=== PATIENT | male | born 1940 | race Caucasian/White ===

== ENCOUNTER 2019-01-27 15:41 | Inpatient (IN) ==
[2019-01-27] MEDS ORDERED: ZOSYN 3.375 GM in NS 50 ML IV SCH (19:00)
[2019-01-27 19:30] LABS: ALLEN TEST YES; BE 5.8 mmoll (-3.0-3.0); BLOOD TYPE ARTERIAL; HCO3-(ACT) 29.4 mmoll (20.0-26.0); METHB 1.1 % (0.0-1.5); O2(CT) 17.5 mL/dL (15.0-23.0); O2HB 94.7 % (95.0-99.0); PCO2(98.6) 40 mmHg (35-45); PO2(98.6) 70 mmHg (60-100); SAMPLE BLOOD; THB 13.1 g/dL (11.5-17.4); pH(98.6) 7.48 (7.35-7.45)
[2019-01-27 19:31] LABS: BASO# 0.03 X1000 (0.0-0.2); BASO% 0.3 % (0.0-0.8); EOS# 0.07 X1000 (0.0-0.7); EOS% 0.7 % (0.0-10.0); HEMATOCRIT 40.2 % (42.0-52.0); HEMOGLOBIN 13.1 g/dL (14.0-18.0); LYMPH# 1.77 X1000 (1.2-3.4); LYMPH% 18.4 % (20.5-51.1); MCH 30.8 PG (27-31); MCHC 32.6 g/dL (33-37); MCV 94.6 FL (81-99); MONO# 0.97 X1000 (0.11-0.59); MONO% 10.1 % (1.7-9.3); MPV 8.8 FL (7.4-10.4); NEUT# 6.77 X1000 (1.4-6.5); NEUT% 70.5 % (42.2-75.2); PLT 209 X1000 (130-400); RBC 4.25 XMIL (4.7-6.1); RDW 12.3 % (11.5-14.5); WBC 9.61 X1000 (4.8-10.8)
[2019-01-27 19:43] LABS: AGAP 10; BUN 18 mg/dL (8-22); CALCIUM 8.7 mg/dL (8.8-10.2); CHLORIDE 99 mmol/L (98-107); COSMO 274; CREATININE 0.8 mg/dL (0.7-1.2); ESTIMATED GFR > 60; GLUCOSE 109 mg/dL (70-104); POTASSIUM 3.6 mmol/L (3.5-5.1); SODIUM 136 mmol/L (136-145); TCO2 27 mmol/L (25-35)
--- NOTE | 2019-01-27 20:17 | Diag Imaging Result Doc PS360 ---
EXAM: CHEST-2 VIEWS HISTORY: SOB TECHNIQUE: Chest two views COMPARISON: 07/03/2018 FINDINGS: Poor inspiratory effort. The right hemidiaphragm is elevated. No cardiomegaly. No vascular distention. No pleural effusions. No pneumonia. IMPRESSION: Stable chest Electronically signed by Teja Deshpande 01/27/2019 8:14 PM
[2019-01-27] MEDS ORDERED: ULTRACET 37.5MG/325MG PO ONE (21:00)
[2019-01-27] MEDS: LEVAQUIN 500 MG/D5W 500 MG/100 ML IVPB IV SCH (21:10)
[2019-01-27] MEDS: PROTONIX IV SCH (21:10)
[2019-01-27] MEDS: LOVENOX SUBQ SCH (21:11)
--- NOTE | 2019-01-28 00:41 | HISTORY AND PHYSICAL ---
CHIEF COMPLAINT: 1. Right leg swelling and pain, redness. 2. Right leg swelling more than the left side. 3. Shortness of breath, dizziness, falling, bruising of the left arm during the activities of daily living for the last 2 weeks. HISTORY OF PRESENT ILLNESS: He is a 78-year-old man white gentleman, was seen in my office on 01/06/2019 with small blisters and redness. Sent home on outpatient treatment. He failed to improve, came in with wheelchair by the son-in-law with above problems, and he is tachycardic, not hypoxic, and he had a positive D-dimer suspicious for DVT and rule out PE. Basically admitted to the hospital for evaluation for DVT. IV antibiotics for extensive cellulitis. He also needs assistance for his balance and physical therapy. 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 PAST SURGICAL HISTORY: Right inguinal hernia repair, right hip replacement, [facility] cardiac cath in 2009 is negative. MEDICATIONS: From my office: 1. Amitiza 8 mg p.o. b.i.d. 2. Flomax 0.4 daily. 3. Potassium 20 mEq daily. 4. Linzess 140 mcg daily. 5. Hyzaar 100/25 daily. 6. Metoprolol 50 daily. 7. Prilosec 40 daily. 8. Ultracet 1 tablet 3 times daily. ALLERGIES: Penicillin, sulfa drugs. SOCIAL HISTORY: He is and lives in [place]. No smoking. No alcohol. FAMILY HISTORY: Father blood pressure complication at the age of 85. Mom of diabetes complications at the age of 75. HEALTH MAINTENANCE: Flu vaccine September 2018. Last physical exam September 2018. Colonoscopy 2014. REVIEW OF SYSTEMS: HEENT: No headache. No vision problem. No earache. Neck : Chronic neck pain radiating to the right side and neck pain. Cardiopulmonary: No chest pain. Respiratory: Shortness of breath, PND, orthopnea. Gastrointestinal: No nausea, vomiting, abdominal pain. Genitourinary: No history of hesitancy, frequency, dysuria. Extremities: He had right leg swelling more than the left side with redness diffuse. Neurologic: No focal symptoms other than dizziness. No seizures. He had a bruise on the left side of the arm. PHYSICAL EXAMINATION: VITAL SIGNS: His temperature is a low-grade fever, tachycardic, blood pressure is 150/84. HEENT: He is generalized kyphotic, walking with a cane, now in wheelchair- bound. Pupils equal, reactive to light. NECK: Supple. No lymphadenopathy. LUNGS: Decreased breath sounds on the right side. HEART: Sounds are regular, tachycardic. ABDOMEN/RECTAL: Belly is soft, obese, nontender. Rectal: Normal prostate. Heme-negative stool. EXTREMITIES: Right leg is swollen, 5 cm more than the left side, diffuse redness noted. NEUROLOGICAL: No neurological deficits. LABS: CBC: White cell count 9.6, hematocrit 40, platelets 209,000. D-dimer 1.18, elevated. SMA- 7 is normal. ProBNP was normal. IMAGING: Chest x-ray, elevated D-dimer. ASSESSMENT AND PLAN: 1. A 78-year-old white male who came in with right leg cellulitis. IV Levaquin since he is allergic to penicillin. 2. Positive D-dimer. Venous Doppler's in the morning. If the symptoms are not improved, we will get a CT pulmonary angiogram. 3. Deep vein thrombosis prophylaxis with Lovenox. 4. Gastrointestinal prophylaxis with IV Protonix. 5. Benign prostatic hyperplasia, on Flomax. 6. Chronic pain, on Ultracet. Reconcile home medicines. Out of the bed with physical therapy. 7. Will follow up on the clinical course. cc: Bala Bishop MD MTDD
[2019-01-28 04:38] LABS: MODALITY ROOM AIR
--- NOTE | 2019-01-28 06:53 | EKG Report ---
Test Performed on : 01/27/2019 7:11:26 PM Test Reason : chest pain Blood Pressure : / mmHG Vent. Rate : 084 BPM Atrial Rate : 084 BPM P-R Int : 200 ms QRS Dur : 080 ms QT Int : 344 ms P-R-T Axes : 078 -39 038 degrees QTc Int : 406 ms Sinus rhythm. with premature atrial complexes. Left axis deviation Low voltage QRS Cannot rule out Anterior infarct (cited on or before 16-MAY-2010) Abnormal ECG When compared with ECG of 19-MAY-2010 06:40, premature atrial complexes. are now present Incomplete right bundle branch block is no longer present T wave amplitude has decreased in Anterior leads Confirmed by Rosey JUNIOR, Nicholas Rich ([id number]) on 01/28/2019 6:58:24 AM
[2019-01-28] MEDS ORDERED: MIRALAX PO ONE (08:22)
[2019-01-28] MEDS: FLOMAX PO SCH (08:53)
[2019-01-28] MEDS: ULTRACET 37.5MG/325MG PO SCH ×3 (08:53→16:41)
[2019-01-28] MEDS: PRILOSEC PO SCH (10:30)
[2019-01-28] MEDS: HYZAAR 100/12.5 MG TAB PO SCH (10:30)
[2019-01-28] MEDS: LOPRESSOR PO SCH (10:30)
[2019-01-28] MEDS: KLOR-CON PO SCH (10:31)
[2019-01-28] MEDS: CLINORIL PO SCH (12:23)
[2019-01-28] MEDS: AMITIZA PO SCH ×2 (12:24→22:24)
[2019-01-28] MEDS: PROTONIX IV SCH (18:34)
[2019-01-28] MEDS: SODIUM CHLORIDE 0.9% INJ SCH (18:34)
[2019-01-28] MEDS: LOVENOX SUBQ SCH (18:34)
[2019-01-28] MEDS: LEVAQUIN 500 MG/D5W 500 MG/100 ML IVPB IV SCH (19:38)
--- NOTE | 2019-01-29 09:00 | Diag Imaging Result Doc PS360 ---
CT HEAD W/O CONTRAST - 01/29/2019 INDICATION: pain COMPARISON: None FINDINGS: The ventricles and sulci are normal in size and contour. No intracranial mass or hemorrhage. The skull is intact. The sinuses mastoids and middle ears are clear. IMPRESSION: Negative exam. This exam was performed using automated exposure control, adjustment of mA or kV according to patient size, and/or use of iterative reconstruction technique Electronically signed by Samuel Chaudhari 01/29/2019 8:57 AM
--- NOTE | 2019-01-29 09:00 | Diag Imaging Result Doc PS360 ---
EXAM: P'TBLE-CERVICAL SPINE 1 VIEW 01/29/2019 HISTORY: pain TECHNIQUE: Cervical spine lateral portable at 0850 COMMENT: There is disc space narrowing and anterior osteophyte formation at the C3-4, C4-5, and particularly at the C5-6 and C6-7 levels. There is no evidence of fracture or subluxation and no prevertebral soft tissue swelling is present. IMPRESSION: Degenerative disc disease. Electronically signed by Bam Caruso 01/29/2019 8:58 AM
[2019-01-29] MEDS: AMITIZA PO SCH ×2 (09:29→21:59)
[2019-01-29] MEDS: LOPRESSOR PO SCH (09:29)
[2019-01-29] MEDS: CLINORIL PO SCH (09:29)
[2019-01-29] MEDS: PRILOSEC PO SCH (09:29)
[2019-01-29] MEDS: HYZAAR 100/12.5 MG TAB PO SCH (09:29)
[2019-01-29] MEDS: KLOR-CON PO SCH (09:30)
[2019-01-29] MEDS: FLOMAX PO SCH (09:30)
[2019-01-29] MEDS: ULTRACET 37.5MG/325MG PO SCH ×3 (09:30→21:58)
--- NOTE | 2019-01-29 21:02 | PROGRESS NOTE ---
DATE: 01/29/2019 SUBJECTIVE: The patient's right leg swelling is better. Redness is better. Complains of dizziness, headache, right cervical radiculopathy pain. He has been treating. EXAM: Vital signs: Temperature is 98, pulse 72, blood pressure 128/63. HEENT: Within normal limits. Neck: Supple. Chest: Bilateral air entry. Heart: Sounds are regular. No deficits noted. Right leg swelling is much improved. Venous Dopplers were negative. ASSESSMENT AND PLAN: 1. Right leg cellulitis with infected ulcer. Continue on IV Levaquin. 2. Positive D-dimer. Venous Dopplers negative. 3. Dizziness, not able to balance. We will get a CT head. 4. Right cervical radiculopathy pain, follow up on x-ray C-spine. 5. Disposition: Rehabilitation placement. Continue present treatment. LEVEL OF DOCUMENTATION: 25 minutes. cc: Bala Bishop MD
[2019-01-29] MEDS: PROTONIX IV SCH (21:58)
[2019-01-29] MEDS: LOVENOX SUBQ SCH (21:58)
[2019-01-29] MEDS: SODIUM CHLORIDE 0.9% INJ SCH (21:58)
[2019-01-29] MEDS: LEVAQUIN 500 MG/D5W 500 MG/100 ML IVPB IV SCH (21:59)
[2019-01-30] MEDS: LOPRESSOR PO SCH (09:42)
[2019-01-30] MEDS: AMITIZA PO SCH ×2 (09:42→20:13)
[2019-01-30] MEDS: KLOR-CON PO SCH (09:43)
[2019-01-30] MEDS: CLINORIL PO SCH (09:43)
[2019-01-30] MEDS: PRILOSEC PO SCH (09:43)
[2019-01-30] MEDS: HYZAAR 100/12.5 MG TAB PO SCH (09:43)
[2019-01-30] MEDS: ULTRACET 37.5MG/325MG PO SCH ×3 (09:43→20:14)
[2019-01-30] MEDS: FLOMAX PO SCH (09:43)
[2019-01-30] MEDS: SOLU-MEDROL IV SCH ×2 (09:56→20:13)
[2019-01-30] MEDS: LEVAQUIN 500 MG/D5W 500 MG/100 ML IVPB IV SCH (20:12)
[2019-01-30] MEDS: LOVENOX SUBQ SCH (20:13)
--- NOTE | 2019-01-30 21:13 | PROGRESS NOTE ---
DATE: 01/30/2019 SUBJECTIVE: The patient is feeling neck pain, dizziness, not able to ambulate. REVIEW OF SYSTEMS: Other than dizziness and pain in the right side. PHYSICAL EXAMINATION: Vital Signs: Temperature is 97 degrees, pulse is 60, blood pressure 121/60. HEENT: Within normal limits. Severe kyphosis. Heart: Sounds are regular. Lungs: Decreased breath sounds on the right side. Abdomen: Belly is soft, nontender. Extremities: Right leg edema much improved, as well as redness. INVESTIGATIONS: None reported. ASSESSMENT AND PLAN: 1. Right leg cellulitis with ecthyma ulcers, getting better with IV antibiotics with Levaquin. 2. Dizziness. CT head was negative. Probably inner ear. 3. Right cervical radiculopathy pain due to spondylosis. We will give IV prednisolone 60 b.i.d. 4. Positive D-dimer. Venous Doppler was negative on the right leg. 5. Deep venous thrombosis prophylaxis with Lovenox. 6. Hypertension, on Hyzaar 1 tablet daily. Metoprolol 50 daily. Stable. 7. Arthritic pains. Sulindac, tramadol as directed. 8. Out of the bed with physical therapy. 9. Chronic constipation, on Amitiza 8 mcg p.o. b.i.d. 10. Continue physical therapy while he is in the hospital. 11. 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 12. Will follow up. LEVEL OF DOCUMENTATION: 25 minutes. cc: Bala Bishop MD
[2019-01-31] MEDS: HYZAAR 100/12.5 MG TAB PO SCH (10:22)
[2019-01-31] MEDS: AMITIZA PO SCH ×2 (10:22→21:01)
[2019-01-31] MEDS: SOLU-MEDROL IV SCH ×2 (10:23→21:01)
[2019-01-31] MEDS: PRILOSEC PO SCH (10:23)
[2019-01-31] MEDS: CLINORIL PO SCH (10:23)
[2019-01-31] MEDS: LOPRESSOR PO SCH (10:23)
[2019-01-31] MEDS: KLOR-CON PO SCH (10:23)
[2019-01-31] MEDS: FLOMAX PO SCH (10:23)
[2019-01-31] MEDS: ULTRACET 37.5MG/325MG PO SCH ×3 (10:25→21:01)
[2019-01-31] MEDS: ANTIVERT PO SCH ×3 (10:41→21:01)
--- NOTE | 2019-01-31 11:05 | PROGRESS NOTE ---
DATE: 01/31/2019 SUBJECTIVE: The patient is stable. Complains of ongoing dizziness. He noted some good improvement in his neck pain with the steroids administered yesterday overall. OBJECTIVE: Afebrile. Pulse is 89, respirations 20, blood pressure 135/77, O2 saturation on room air is 93% to 94%. Cardiovascular: Regular rate and rhythm with occasional ectopy. Lungs: I cannot rule out rare wheeze on the right. Abdomen is soft. Active bowel sounds. Nontender and nondistended. Positive bowel movements noted since admission daily. Extremities: Trace lower extremity edema, right greater than left, with mild redness to right distal to mid cuenca area improving by patient report. Neurologic: Cranial nerves II through XII are intact. Large bruising at left triceps, biceps and antecubital area, chronic since before admission. ASSESSMENT: 1. Right lower extremity cellulitis with negative venous Doppler. Stable on IV Levaquin. 2. Dizziness with history of vertigo frequently in the past. 3. Right neck pain, improved with IV steroids. 4. Elevated D-dimer with negative venous Doppler of right lower extremity, on prophylactic doses of Lovenox currently. 5. Hypertension. 6. Osteoarthritis. 7. Chronic constipation. PLAN: Continue physical therapy. We will add Antivert. Continue IV steroids. Continue IV Levaquin. Rehabilitation placement evaluation in progress. cc: MD Bala Turner MD
[2019-01-31] MEDS: LEVAQUIN 500 MG/D5W 500 MG/100 ML IVPB IV SCH (21:00)
[2019-01-31] MEDS: LOVENOX SUBQ SCH (21:01)
[2019-02-01] MEDS: FLOMAX PO SCH (09:12)
[2019-02-01] MEDS: CLINORIL PO SCH (09:12)
[2019-02-01] MEDS: SOLU-MEDROL IV SCH ×2 (09:12→21:07)
[2019-02-01] MEDS: ANTIVERT PO SCH ×3 (09:13→18:27)
[2019-02-01] MEDS: AMITIZA PO SCH ×2 (09:13→21:07)
[2019-02-01] MEDS: LOPRESSOR PO SCH (09:13)
[2019-02-01] MEDS: KLOR-CON PO SCH (09:13)
[2019-02-01] MEDS: PRILOSEC PO SCH (09:13)
[2019-02-01] MEDS: HYZAAR 100/12.5 MG TAB PO SCH (09:14)
[2019-02-01] MEDS: ULTRACET 37.5MG/325MG PO SCH ×3 (09:14→18:27)
--- NOTE | 2019-02-01 10:57 | PROGRESS NOTE ---
DATE: 02/01/2019 SUBJECTIVE: Patient overall stable. Still complains of dizziness but says he thinks he is improved from yesterday with a trial of the Antivert. It did seem to cause some drowsiness. OBJECTIVE: Vital Signs: Afebrile, pulse 50s at times and now 76, respirations 20, blood pressure 161/89. CV: RRR. Lungs: CTA. Abdomen: Soft, nontender, nondistended. Last bowel movement yesterday. Extremities: No calf tenderness or cords. No major edema identified. There is some redness over the right mid to distal cuenca area that is chronic and some scabbed lesions but these do not appear acutely infected. Neurologic: CN 2 through 12 intact. No focal deficits. ASSESSMENT: 1. Right lower extremity cellulitis, improving slowly on Levaquin. 2. Vertigo. 3. Right neck pain, improved with intravenous steroids. 4. Elevated D-dimer with negative venous Doppler, on prophylactic doses of Lovenox currently. 5. Hypertension. 6. Osteoarthritis. 7. Chronic constipation, stable on medicine. PLAN: Continue Antivert and physical therapy, and the IV steroids and IV Levaquin. Rehab placement planned tomorrow. cc: MD Bala Turner MD
[2019-02-01] MEDS: MUCINEX DM PO SCH ×2 (14:43→21:07)
[2019-02-01] MEDS: LOVENOX SUBQ SCH (21:07)
[2019-02-01] MEDS: LEVAQUIN 500 MG/D5W 500 MG/100 ML IVPB IV SCH (21:12)
--- NOTE | 2019-02-02 08:56 | Diag Imaging Result Doc PS360 ---
EXAM: SHOULDER-RIGHT 02/02/2019 HISTORY: pain TECHNIQUE: Right shoulder two views COMMENT: There is calcification in or around the acromioclavicular joint. This may be due to calcium pyrophosphate deposition disease. There is considerable subchondral cyst formation present particularly around the greater tuberosity. No evidence of acute fracture or dislocation is present. IMPRESSION: Osteoarthritis with calcium pyrophosphate deposition disease. Electronically signed by Bam Caruso 02/02/2019 8:53 AM
[2019-02-02] MEDS: PRILOSEC PO SCH (09:15)
[2019-02-02] MEDS: AMITIZA PO SCH ×2 (09:24→20:39)
[2019-02-02] MEDS: LOPRESSOR PO SCH (09:24)
[2019-02-02] MEDS: HYZAAR 100/12.5 MG TAB PO SCH (09:25)
[2019-02-02] MEDS: FLOMAX PO SCH (09:25)
[2019-02-02] MEDS: CLINORIL PO SCH (09:25)
[2019-02-02] MEDS: MUCINEX DM PO SCH ×2 (09:25→20:39)
[2019-02-02] MEDS: KLOR-CON PO SCH (09:25)
[2019-02-02] MEDS: SOLU-MEDROL IV SCH ×2 (09:26→20:39)
[2019-02-02] MEDS: ANTIVERT PO SCH ×3 (09:26→16:56)
[2019-02-02] MEDS: ULTRACET 37.5MG/325MG PO SCH ×3 (09:27→20:40)
[2019-02-02] MEDS ORDERED: MARCAINE 0.5% INJ ONE (12:11)
[2019-02-02] MEDS ORDERED: DEPO-MEDROL IM ONE (12:11)
[2019-02-02] MEDS ORDERED: MARCAINE 0.5% PF INJ ONE (12:45)
--- NOTE | 2019-02-02 18:07 | CONSULTATION ---
DATE OF CONSULTATION: 02/02/2019 REASON FOR CONSULTATION: Right shoulder pain. HISTORY OF PRESENT ILLNESS: Mr. Peguero is a 78-year-old white male with a past medical history of BPH, hypertension, osteoarthritis, and spinal stenosis, who was admitted by Dr. Philip to [facility] after seeing him in the office. Apparently, he came to the office with cellulitis of the right lower extremity. He was also tachycardic in the office, and there were some suspicions for a DVT. While he has been in the hospital, he has been complaining of some right shoulder pain. Orthopedics has been consulted to manage the right shoulder pain. PAST MEDICAL HISTORY: 1. BPH. 2. Primary essential hypertension. 3. Nguyễn's disease of the back. 4. Osteoarthritis. 5. Spinal stenosis. PAST SURGICAL HISTORY: 1. Right inguinal hernia repair. 2. Right total hip replacement. 3. Left heart catheterization in 2009. MEDICATIONS: 1. Amitiza 8 mg p.o. b.i.d. 2. Flomax 0.5 mg daily. 3. Potassium 20 mEq daily. 4. Linzess 140 mcg daily. 5. Hyzaar 100/25 mg daily. 6. Metoprolol 50 mg daily. 7. Prilosec 40 mg daily. 8. Ultracet 1 tablet 3 times p.o. daily. ALLERGIES: 1. Penicillin. 2. Sulfa drugs. SOCIAL HISTORY: He is and lives [place]. He denies tobacco, alcohol, or illicit drug use. FAMILY HISTORY: Noncontributory. REVIEW OF SYSTEMS: A 10 point review of systems was conducted and negative, except for what was mentioned above in the HPI. PHYSICAL EXAMINATION: Current Vital Signs: Temperature is 98.3 degrees, pulse is 56, respirations 18, he is 120/64 blood pressure, and 97% on 4 L nasal cannula. General: This is a 78-year-old male in no acute distress. HEENT: Head is atraumatic, normocephalic. Pupils are equal, round, and reactive to light. Lungs: Breathing is even and unlabored. He is on oxygen. Cardiovascular: Regular rate and rhythm. Abdomen: The belly is soft. He is obese. Appears nondistended. Extremities: The right lower leg does still have some erythema, kind of generalized to that area. He does still have some edema there. Right upper extremity: He is tender to palpation mostly over the AC joint. There is no significant edema. He does have some ecchymosis, but there are no open lacerations or wounds. His hand intrinsics are intact. He has a 2+ radial pulse. DIAGNOSTIC STUDIES: A right shoulder x-ray shows no acute fracture, but there is some calcification of the AC joint. Overall alignment looks good. ASSESSMENT: 1. Right shoulder contusion. 2. Right subacromial bursitis. PLAN: I think at this point, pain control and physical therapy will be the best bet for the shoulder. We are going to proceed with a steroid injection on this right side. PROCEDURE NOTE: Right shoulder injection. DESCRIPTION: After verbal consent was obtained, the skin was prepped and allowed to air dry with alcohol. A 22-gauge needle was used to access the AC joint. An 80 mg Depo-Medrol solution with Marcaine was injected intra-articularly. Patient tolerated the procedure well, and there were no complications. I do want Mr. Peguero to continue using this right shoulder. He can work with Physical Therapy on the right shoulder as well. We will follow up with him in 3 to [address] Moreira's office. If he has seen no improvement with the injection and with therapy, we may consider getting an MRI to further evaluate the shoulder. Should the patient have any questions or concerns, he is welcome to call the office. If you need anything further, we would be happy to see him in-house. Dictated by MITZY Meyers for Malik Moreira MD cc: MITZY Meyers MD Jagan Reddy, MD
[2019-02-02] MEDS: LEVAQUIN 500 MG/D5W 500 MG/100 ML IVPB IV SCH (20:39)
[2019-02-02] MEDS: LOVENOX SUBQ SCH (20:39)
--- NOTE | 2019-02-02 21:19 | PROGRESS NOTE ---
DATE: 02/02/2019 SUBJECT: Events noted over the weekend. Patient got better yesterday now complains of dizziness, right shoulder pain. He is not able to ambulate. Nurse was at bedside. The son is also there too. Blood pressure, heart rate is on the low side. He is in telemetry.HEENT: Within normal limits. Neck: Supple. Chest: Bilateral air entry decreased on the right side. Distant heart sounds and the right shoulder not able to lift with abduction. Decreased swelling and redness on the right leg. ASSESSMENT AND PLAN: 1. Right leg cellulitis improving. IV Levaquin. 2. Positive D-dimer. Venous Dopplers were negative. 3. Chronic elevated right hemidiaphragm stable. 4. Dizziness due to inner ear, will use meclizine as needed, not able to improve will check the orthostatic blood pressure. 5. Sinus bradycardia. I am going to decrease the metoprolol to 25 mg daily from [address] head is negative, not improving, follow up on orthostatic. 7. Right shoulder pain. X-rays reviewed. Pseudogout. Consult with Dr. Moreira. Discussed the plan of care with the family. Will continue to monitor and disposition rehab placement. LEVEL OF DOCUMENTATION: 25 minutes. cc: Bala Bishop MD
--- NOTE | 2019-02-03 06:52 | PROGRESS NOTE ---
DATE: 02/03/2019 SUBJECTIVE: The patient is a pleasant, 78-year-old male who was admitted to the hospital a few days ago with cellulitis of the right lower extremity. He had been on IV Levaquin. He also reports a fall approximately a week ago, injuring his right shoulder. He has had discomfort and orthopedic consultation was requested. OBJECTIVE: On physical examination, the patient is currently sleeping this morning. He underwent evaluation yesterday and had some ecchymosis on the lateral upper arm. He did have a positive Neer impingement and Garay. X-rays were negative for acute fracture. IMPRESSION: Right shoulder contusions and subacromial bursitis. PLAN: At this point, the patient received a corticosteroid injection yesterday. We will plan to immobilize and use shoulder and right upper extremity as tolerated. We will have him follow up in the office in a few weeks if he is still symptomatic. All questions were answered. cc: MD Bala Dos Santos MD MTDD
[2019-02-03] MEDS: SOLU-MEDROL IV SCH (09:17)
[2019-02-03] MEDS: FLOMAX PO SCH (09:18)
[2019-02-03] MEDS: LOPRESSOR PO SCH (09:18)
[2019-02-03] MEDS: PRILOSEC PO SCH (09:18)
[2019-02-03] MEDS: CLINORIL PO SCH (09:19)
[2019-02-03] MEDS: AMITIZA PO SCH ×2 (09:19→21:00)
[2019-02-03] MEDS: KLOR-CON PO SCH (09:19)
[2019-02-03] MEDS: ANTIVERT PO SCH ×3 (09:19→16:06)
[2019-02-03] MEDS: HYZAAR 100/12.5 MG TAB PO SCH (09:19)
[2019-02-03] MEDS: ULTRACET 37.5MG/325MG PO SCH ×3 (09:20→21:00)
[2019-02-03] MEDS: MUCINEX DM PO SCH ×2 (09:20→21:00)
--- NOTE | 2019-02-03 17:57 | Extremity Venous Study ---
PROCEDURE NAME: Venous U/S Right Leg - 01/27/2019 REQUEST PHYSICIAN: Dr. Bishop. READING PHYSICIAN: Dr. Victoria. CHIEF CATALYST OPERATOR: Dalia. INDICATION: Right leg pain and swelling. FINDINGS: The deep and superficial veins of the right lower extremity were imaged throughout their course. They are compressible, patent without thrombus. INTERPRETATION: No DVT or SVT of the right lower extremity. cc: MD Bala Botello MD
--- NOTE | 2019-02-03 20:01 | PROGRESS NOTE ---
DATE: 02/03/2019 SUBJECTIVE: The patient continues to have dizziness upon moving the head. Meclizine is not helping. Right shoulder pain is somewhat improved with the shot. I appreciate Dr. Moreira's consult. PHYSICAL EXAMINATION: Hemodynamics are stable. Pulse is 77, temperature is 97 degrees, blood pressure is 137/70. HEENT: Within normal limits. Neck: Supple. Chest: Bilateral air entry. Cardiovascular: Heart sounds are regular. ASSESSMENT AND PLAN: 1. Right shoulder pain due to osteoarthritis, status post Steroid injection. 2. Dizziness. Etiology is not clear. We will check the carotid Dopplers. Continue to measure the orthostatic blood pressure. We will decrease the steroid dose. 3. Deep vein thrombosis prophylaxis with Lovenox. Cellulitis is improving. Heart rate is low. Decrease the Lopressor to 25 daily and follow up on carotid Dopplers. Slowly leaning towards rehab placement. LEVEL OF DOCUMENTATION: 25 minutes. cc: Bala Bishop MD MTDD
[2019-02-03] MEDS: LEVAQUIN 500 MG/D5W 500 MG/100 ML IVPB IV SCH (20:59)
[2019-02-03] MEDS: LOVENOX SUBQ SCH (21:01)
[2019-02-04] MEDS: FLOMAX PO SCH (08:42)
[2019-02-04] MEDS: KLOR-CON PO SCH (08:42)
[2019-02-04] MEDS: LOPRESSOR PO SCH ×2 (08:42→08:47)
[2019-02-04] MEDS: ANTIVERT PO SCH ×3 (08:42→17:47)
[2019-02-04] MEDS: ULTRACET 37.5MG/325MG PO SCH ×3 (08:43→20:02)
[2019-02-04] MEDS: PRILOSEC PO SCH (08:43)
[2019-02-04] MEDS: CLINORIL PO SCH (08:44)
[2019-02-04] MEDS: HYZAAR 100/12.5 MG TAB PO SCH (08:44)
[2019-02-04] MEDS: MUCINEX DM PO SCH ×2 (08:45→20:04)
[2019-02-04] MEDS: SOLU-MEDROL IV SCH (08:45)
[2019-02-04] MEDS: AMITIZA PO SCH ×2 (08:45→20:04)
--- NOTE | 2019-02-04 20:02 | PROGRESS NOTE ---
DATE: 02/04/2019 SUBJECTIVE: The patient remains continue of dizziness, even with the slightest movement. Heart rate is around 50 to 60. Hemodynamics are stable, and right shoulder slowly improving. PHYSICAL EXAMINATION: Vital signs: Stable. Neck: Supple. Chest: Bilateral air entry, decreased on the right side. Cardiovascular: Heart sounds are regular. Abdomen: Belly is soft, nontender. Good bowel sounds. ASSESSMENT AND PLAN: 1. Right shoulder pain, improving after steroid injection. Decrease the IV steroids for chronic neck pain. 2. Severe dizziness. Workup is negative. Follow up on carotid Dopplers. 3. Right leg cellulitis, improving. 4. Bradycardia. Discontinue metoprolol. Continue on Hyzaar, and we are slowly planning to discharge to the rehab at his request. 5. Continue orthostatic blood pressure. I am not able to see on the nursing note. LEVEL OF DOCUMENTATION: 25 minutes. cc: Bala Bishop MD
[2019-02-04] MEDS: LOVENOX SUBQ SCH ×2 (20:04→21:47)
[2019-02-04] MEDS: LEVAQUIN 500 MG/D5W 500 MG/100 ML IVPB IV SCH (20:04)
[2019-02-05] MEDS: FLOMAX PO SCH (08:07)
[2019-02-05] MEDS: ULTRACET 37.5MG/325MG PO SCH ×3 (08:07→20:29)
[2019-02-05] MEDS: PRILOSEC PO SCH (08:07)
[2019-02-05] MEDS: KLOR-CON PO SCH (08:08)
[2019-02-05] MEDS: ANTIVERT PO SCH ×3 (08:08→20:35)
[2019-02-05] MEDS: CLINORIL PO SCH (08:08)
[2019-02-05] MEDS: MUCINEX DM PO SCH ×2 (08:09→20:28)
[2019-02-05] MEDS: AMITIZA PO SCH ×2 (08:09→20:28)
[2019-02-05] MEDS: SOLU-MEDROL IV SCH (08:10)
[2019-02-05] MEDS: HYZAAR 100/12.5 MG TAB PO SCH (08:12)
--- NOTE | 2019-02-05 19:57 | PROGRESS NOTE ---
DATE: 02/05/2019 SUBJECTIVE: The patient still complains of intermittent dizziness. Right shoulder is improving. He wants to go for rehab. OBJECTIVE: Vital Signs: He is not orthostatic, pulse is 79, temperature is 98 degrees, blood pressure is stable. 93% on room air. HEENT: Within normal limits. Chest: Poor air entry. Heart: Distant heart sounds. Abdomen: Belly is soft, nontender. INVESTIGATIONS: Carotid Dopplers were negative. ASSESSMENT AND PLAN: 1. Dizziness/vertigo. Not orthostatic. Continue his meclizine. 2. Right shoulder pain improving. 3. Cellulitis is better and hypertension is stable. Discontinue on beta blockers. 4. Disposition: Rehab placement tomorrow LEVEL OF DOCUMENTATION: 25 minutes. cc: Bala Bishop MD
[2019-02-05] MEDS: LEVAQUIN 500 MG/D5W 500 MG/100 ML IVPB IV SCH (20:28)
[2019-02-05] MEDS: LOVENOX SUBQ SCH (20:32)
[2019-02-06] MEDS: FLOMAX PO SCH (09:33)
[2019-02-06] MEDS: HYZAAR 100/12.5 MG TAB PO SCH (09:33)
[2019-02-06] MEDS: MUCINEX DM PO SCH (09:33)
[2019-02-06] MEDS: PRILOSEC PO SCH (09:33)
[2019-02-06] MEDS: CLINORIL PO SCH (09:33)
[2019-02-06] MEDS: SOLU-MEDROL IV SCH (09:33)
[2019-02-06] MEDS: AMITIZA PO SCH (09:33)
[2019-02-06] MEDS: ANTIVERT PO SCH ×2 (09:33→13:21)
[2019-02-06] MEDS: ULTRACET 37.5MG/325MG PO SCH ×2 (09:34→13:21)
[2019-02-06] MEDS: KLOR-CON PO SCH (09:34)
--- NOTE | 2019-02-06 10:41 | DISCHARGE SUMMARY ---
ADMISSION DATE: 01/27/2019 DISCHARGE DATE: 02/06/2019 DISCHARGING DIAGNOSIS: Right leg cellulitis with traumatic ulcers. SECONDARY DIAGNOSES: 1. Right shoulder pain due to osteoarthritis with pseudogout. 2. Cervical spine spondylosis. 3. Abnormal chest x-ray with chronic elevation of right hemidiaphragm. 4. Benign prostatic hypertrophy. 5. Lumbar spine spondylosis with spinal stenosis. 6. Irritable bowel syndrome with constipation. 7. Hypertension. 8. Acid reflux disease. 9. Sinus bradycardia due to atenolol, discontinued. CONSULTANTS: Dr. Moreira. PROCEDURES: Trigger injection of right shoulder. BRIEF HISTORY: Please see the H and P that was done on 01/27/2019. In brief, he is a 78-year-old white gentleman, lately has been dwindling in his activities of daily living with the above medical problems. He is basically kyphotic, recurrent falls, dizziness, shoulder pain. He sustained traumatic ulcers in the right leg which are not healing, with cellulitis. The patient has been hospitalized with the following problems. 1. Positive D-dimer. Venous Dopplers were negative for acute DVT. 2. For right leg cellulitis, patient was started on IV antibiotics. Subsequently much improved. 3. He is not able to walk due to significant osteoarthritic changes in the neck and the back and the shoulder, predominantly in the right shoulder. He has also extreme dizziness upon walking. The patient was seen by Dr. Moreira, who gave a trigger injection in the right shoulder. He was also given IV steroids and meclizine. Further workup, CT head was negative for any acute pathology. Carotid Dopplers were negative. He was not orthostatic. monitoring engineer showed the heart rate is around 40 to 50. Atenolol was discontinued. Blood pressure was doing very well on Hyzaar. The patient wants to go for rehab. He is being sent to [facility] in stable condition. LABORATORY DATA: CBC: White cell count 9.6, hematocrit 40, platelets 209,000. D-dimer 1.18. ABG on room air, pH is 7.48, pCO2 40, PO2 70. Sodium 136, potassium 3.6, BUN 18, creatinine 0.8 glucose 109. ProBNP 249. EKG normal sinus, nothing acute. RADIOLOGY PROCEDURES: 1. Shoulder x-ray on the right side showed pseudogout with osteoarthritic changes. 2. CT head negative. 3. C-spine x-ray showed diffuse spondylosis C3-C4, C4-C5, C6-C7. 4. Venous Dopplers were negative. 5. Chest x-ray, right hemidiaphragm chronically elevated. DISCHARGE INSTRUCTIONS: 1. Initiate vaccination protocol prior to the discharge. 2. Discontinue atenolol due to sinus bradycardia. 3. Prilosec 40 mg daily. 4. Potassium 20 mEq daily. 5. Flomax 0.4 mg daily. 6. Amitiza 8 mcg p.o. b.i.d. 7. Hyzaar 100/12.5 daily. 8. Ultracet 1 tablet t.i.d. 9. Medrol Dosepak. 10. Follow up outpatient. cc: Bala Bishop MD
[2019-02-06 11:36] VITALS: BP 121/68
--- NOTE | 2019-02-06 12:15 | Carotid Study ---
DATE: 02/03/2019 PROCEDURE: Carotid duplex imaging. REFERRING PHYSICIAN: Dr. Bishop INTERPRETING PHYSICIAN: Dr. Bedoya TECH: Dilcia Gómez Layla INDICATIONS: Syncope. OBSERVED DATA RIGHT LEFT Brachial Blood Pressure Carotid Pulse Bruits: Carotid/Sub DIAGRAM OF ULTRASOUND IMAGING R L RIGHT INT EXT INT EXT LEFT Eugene (cm/s) Eugene (cm/s) Subclavian 70/0 Subclavian 76/0 CCA Proximal 61/7 CCA Proximal 57/9 CCA Distal 54/11 CCA Distal 49/10 Bulb 54/11 Bulb 51/10 ICA Proximal 93/25 ICA Proximal 53/13 ICA Mid 44/7 ICA Mid 48/14 ICA Distal 57/15 ICA Distal 52/14 ECA 51/5 ECA 38/6 Vertebral 25/0 Vertebral 49/10 ICA/CCA Ratio 1.54 ICA/CCA Ratio 0.92 % Stenosis 0 to 39 % Stenosis 0 to 39 PHYSICIAN INTERPRETATION: Mild atherosclerotic disease of the distal common and internal carotid arteries bilaterally without evidence of a hemodynamically significant lesion in either carotid system. cc: MD Bala Jasso MD
== END 2019-02-06 15:13 | DRG 603 ==
LOC: DIRADM → OBSVTOIN 15:41 → 4N 17:44
PROVIDERS: ADMIT Internal Medicine; ATTEND Internal Medicine
CPT/HCPCS: 70450; 71020; 71046; 72020; 73030; 80048; 82805; 83880; 85025; 85379; 93005; 93010; 93880; 93971; 94760; 97110; 97116; 97162; 97530; A9270; C9113; J1650; J1956; J2920; J2930; S0164

== ENCOUNTER 2019-09-08 14:41 | Inpatient (IN) ==
[2019-09-08] MEDS ORDERED: TORADOL IV PRN (18:37)
[2019-09-08] MEDS ORDERED: VANCOMYCIN IV PER PHARMACY MISC SCH (18:45)
--- NOTE | 2019-09-08 19:33 | Diag Imaging Result Doc PS360 ---
EXAM: CHEST-2 VIEWS INDICATION: SOB TECHNIQUE: 2 views COMPARISON: 01/27/2019 FINDINGS: There is stable elevation of the right hemidiaphragm. There is suggestion of subsegmental atelectasis at both lung bases. The lungs are grossly clear, otherwise. There is no discrete pleural fluid collection or pneumothorax. The cardiomediastinal silhouette and central vasculature are grossly unremarkable. IMPRESSION: Mild bibasilar subsegmental atelectasis. No definite acute chest pathology by plain radiograph. Electronically signed by Ky Stokes 09/08/2019 7:31 PM
[2019-09-08] MEDS: NEXIUM IV SCH (20:01)
[2019-09-08] MEDS: LOVENOX SUBQ SCH (20:01)
[2019-09-08] MEDS: AMITIZA PO SCH (20:02)
[2019-09-08] MEDS: LEVAQUIN 500 MG/D5W 500 MG/100 ML IVPB IV SCH (20:02)
[2019-09-08] MEDS: SODIUM CHLORIDE 0.9% INJ SCH (20:02)
[2019-09-08 21:03] LABS: BASO# 0.03 X1000 (0.0-0.2); BASO% 0.3 % (0.0-0.8); EOS# 0.24 X1000 (0.0-0.7); EOS% 2.5 % (0.0-10.0); HEMATOCRIT 39.7 % (42.0-52.0); HEMOGLOBIN 12.5 g/dL (14.0-18.0); IMM GRAN# 0.02 X1000 (0.0-0.04); IMM GRAN% 0.2 % (0.0-0.5); LYMPH# 1.43 X1000 (1.2-3.4); LYMPH% 14.9 % (20.5-51.1); MCH 30.1 PG (27-31); MCHC 31.5 g/dL (33-37); MCV 95.7 FL (81-99); MONO# 0.82 X1000 (0.11-0.59); MONO% 8.5 % (1.7-9.3); MPV 9.5 FL (7.4-10.4); NEUT# 7.08 X1000 (1.4-6.5); NEUT% 73.6 % (42.2-75.2); PLT 216 X1000 (130-400); RBC 4.15 XMIL (4.7-6.1); RDW 12.2 % (11.5-14.5); WBC 9.62 X1000 (4.8-10.8)
[2019-09-08 21:07] LABS: AGAP 13; ALB/GLOB RATIO 1.4; ALBUMIN 3.7 g/dL (3.5-5.0); ALKALINE PHOSPHATASE 78 U/L (32-122); BUN 27 mg/dL (8-22); C REACTIVE PROT QUANT 10.92 mg/L (0.00-5.00); CALCIUM 8.7 mg/dL (8.8-10.2); CHLORIDE 97 mmol/L (98-107); CK PROFILE 96 U/L (24-204); COSMO 289; CREATININE 1.1 mg/dL (0.7-1.2); ESTIMATED GFR > 60; GLUCOSE 139 mg/dL (70-104); GOT 18 U/L (10-34); GPT 12 U/L (10-44); SODIUM 141 mmol/L (136-145); TCO2 31 mmol/L (25-35); TOTAL BILIRUBIN 0.21 mg/dL (0.20-1.00); TOTAL PROTEIN 6.3 g/dL (6.3-8.3)
[2019-09-08] MEDS ORDERED: VANCOMYCIN 2,450 MG in NS 500 ML IV ONE (22:00)
--- NOTE | 2019-09-08 22:31 | HISTORY AND PHYSICAL ---
CHIEF COMPLAINT: Bilateral leg swelling and ulcers, right is worse than the left side. HISTORY OF PRESENT ILLNESS: He is a 79-year-old white gentleman, came in my office with bilateral leg ulcers, appears to be venous stasis, mostly on the right side with a lot of exudate. Not getting any better for the last 2 weeks. The patient was placed on hydrocolloid dressings and Unna boot with a lot of exudate. Basically admitted to the hospital with impending cellulitis. IV antibiotics, aggressive wound consult. PAST MEDICAL HISTORY: 1. BPH. 2. Hypertension. 3. History of Nguyễn's disease of back. 4. Osteoarthritis. 5. Abnormal chest x-ray with elevation of right hemidiaphragm. 6. Spinal stenosis L3, L4. 7. Elevated PSA, 4K score tests 6% in September 2018. 8. History of chronic vertigo, under the balance treatment by Dr. Gómez. PAST SURGICAL HISTORY: 1. Right inguinal hernia repair. 2. Right hip replacement status post [facility]. 3. Cardiac catheterization in 2009. MEDICATIONS: 1. Amitiza 8 mcg, 1 tablet p.o. b.i.d. 2. Flomax 0.4 daily. 3. Lasix 80 mg daily. 4. Potassium 20 mEq daily. 5. Hyzaar 100/25 daily. 6. Prilosec 40 daily. 7. Ultracet 1 tablet 3 times daily. ALLERGIES: Reported to penicillin and sulfa drugs. SOCIAL HISTORY: . No smoking. No alcohol. Living in [place]. FAMILY HISTORY: Father at the age of 85 from hypertension complications. Mom of diabetic complications at 78. HEALTH MAINTENANCE: Flu vaccine 2017. Flu vaccine was given 09/2019. Last digital exam September 2018, colonoscopy 2014. REVIEW OF SYSTEMS: HEENT: No headache, chronic dizziness, vertigo, under the care of Dr. Gómez. No sore throat. Neck: No goiter. No lymphadenopathy. No bruit. Cardiopulmonary: No chest pain, shortness of breath, PND, orthopnea. Gastrointestinal: No nausea, vomiting, abdominal pain. Genitourinary: No history of hesitancy, frequency, dysuria, and bilateral leg swelling with ulcers, right is worse than the left side. Not able to ambulate due to arthritic pains, slowly deconditioning. Neurologic: No focal symptoms or weakness. PHYSICAL EXAMINATION: VITAL SIGNS: Temperature is 98.4 degrees, pulse 108, blood pressure 113/70, height 5 feet 10 inches. Weight 240 pounds. HEENT: Atraumatic, normocephalic. Pupils equal, react to light. TMs are normal. Nose and throat within normal limits. NECK: Supple. No lymphadenopathy. JVD is not elevated. CHEST: Decreased breath sounds right base. HEART: Sounds are regular. No murmur. ABDOMEN: Belly is soft, obese, nontender. Good bowel sounds. RECTAL: Deferred. EXTREMITIES: Bilateral legs, he has Unna boot and showing multiple ulcers with redness noted. No signs of gangrene. INVESTIGATIONS: CBC: White cell count 9.6, hematocrit 39.7, platelet 216,000. Sodium 140, potassium 4.0, chloride 96, BUN 27, creatinine 1.1. Glucose 139. Cardiac enzymes normal. CRP slightly elevated. Chest x-ray stable with chronic elevated right hemidiaphragm. ASSESSMENT AND PLAN: A 79-year-old white male admitted to the hospital with cellulitis associated with stasis ulcers, right leg worse than the left side. PLAN OF CARE: 1. Wound care consult. 2. Since the patient is allergic to PENICILLIN, we will give some vancomycin and Levaquin. 3. Deep venous thrombosis and gastrointestinal prophylaxis with Lovenox and Nexium. 4. Type 2 diabetes. Follow insulin sliding scale with insulin coverage. 5. Osteoarthritic pain on Toradol. 6. Chronic dizzy and vertigo. On balance with Dr. Gómez. 7. Chronic constipation, on Amitiza. 8. Reconcile home medications. 9. Influenza vaccine was given in my office today. 10. Discussed the plan of care with family and we will speak to Paula wound care consult in the morning. cc: Bala Bishop MD MTDD
[2019-09-08] MEDS: HUMALOG SUBQ SCH (23:16)
[2019-09-09] MEDS: HUMALOG SUBQ SCH ×4 (06:09→22:22)
[2019-09-09] MEDS: AMITIZA PO SCH ×2 (10:17→23:03)
[2019-09-09] MEDS: FLOMAX PO SCH (10:17)
[2019-09-09] MEDS: KLOR-CON PO SCH (10:17)
[2019-09-09] MEDS: HYZAAR 100/12.5 MG TAB PO SCH (10:17)
[2019-09-09] MEDS: ULTRACET 37.5MG/325MG PO SCH ×3 (10:23→23:03)
[2019-09-09] MEDS: LOVENOX SUBQ SCH (15:38)
[2019-09-09] MEDS: NEXIUM IV SCH (15:38)
[2019-09-09] MEDS: LEVAQUIN 500 MG/D5W 500 MG/100 ML IVPB IV SCH (15:38)
[2019-09-09] MEDS: SODIUM CHLORIDE 0.9% INJ SCH (15:38)
[2019-09-09] MEDS ORDERED: ZYRTEC PO ONE (21:22)
--- NOTE | 2019-09-09 21:43 | PROGRESS NOTE ---
DATE: 09/09/2019 SUBJECTIVE: Appreciated Wound Care consults. Unna boot was applied on both legs. Redness is slowly improving. Complains of allergies. PHYSICAL EXAMINATION: Vital Signs: Temperature is 97.8 degrees, pulse 78. Vitals are stable. HEENT: Within normal limits. Neck: Supple. Lungs: Bilateral air entry. Heart: Sounds are regular. Abdomen: Belly is soft, nontender. Neurologic: No obvious deficits. ASSESSMENT AND PLAN: Cellulitis of right leg, worse on the right side, with stasis ulcers. Continue present treatment. Follow up outpatient clinic. Continue on intravenous antibiotics with vancomycin, and will use the Zyrtec for allergies. I appreciated wound consults. Continue present treatment for underlying medical problems, and hopefully will be discharged on Saturday. LEVEL OF DOCUMENTATION: 25 minutes. cc: Bala Bishop MD
[2019-09-09] MEDS: VANCOMYCIN 2,150 MG in NS 500 ML IV SCH (23:04)
[2019-09-10] MEDS: HUMALOG SUBQ SCH ×4 (07:01→22:54)
[2019-09-10] MEDS: KLOR-CON PO SCH (08:55)
[2019-09-10] MEDS: FLOMAX PO SCH (08:55)
[2019-09-10] MEDS: AMITIZA PO SCH ×2 (08:55→21:45)
[2019-09-10] MEDS: ULTRACET 37.5MG/325MG PO SCH ×3 (08:55→17:33)
[2019-09-10] MEDS: HYZAAR 100/12.5 MG TAB PO SCH (08:55)
[2019-09-10] MEDS: LEVAQUIN 500 MG/D5W 500 MG/100 ML IVPB IV SCH (17:33)
[2019-09-10] MEDS: NEXIUM IV SCH (17:34)
[2019-09-10] MEDS: LOVENOX SUBQ SCH (17:34)
[2019-09-10] MEDS: SODIUM CHLORIDE 0.9% INJ SCH (17:34)
[2019-09-10] MEDS ORDERED: ZYRTEC PO SCH (21:00)
--- NOTE | 2019-09-10 21:10 | PROGRESS NOTE ---
DATE: 09/10/2019 SUBJECTIVE: The patient's sinuses are better. Complains of constipation. Had Unna boot on both sides. PHYSICAL EXAMINATION: Temperature is 97 degrees. Vitals are stable. Physical exam no change. ASSESSMENT AND PLAN: 1. Chronic venous stasis ulcers. Bilateral Unna boots. Continue on Unna boot like this until Saturday and continue intravenous antibiotics. 2. Allergies are better. 3. Constipation. We will give some of MiraLAX tonight. He is on Amitiza. 4. Plan for discharge tomorrow with oral antibiotics and outpatient home health. LEVEL OF DOCUMENTATION: 25 minutes. cc: Bala Bishop MD
[2019-09-10] MEDS: VANCOMYCIN 2,150 MG in NS 500 ML IV SCH (21:45)
[2019-09-11] MEDS: HUMALOG SUBQ SCH (06:38)
[2019-09-11] MEDS ORDERED: MIRALAX PO SCH (09:00)
[2019-09-11] MEDS: FLOMAX PO SCH (09:48)
[2019-09-11] MEDS: AMITIZA PO SCH (09:48)
[2019-09-11] MEDS: ULTRACET 37.5MG/325MG PO SCH (09:48)
[2019-09-11] MEDS: KLOR-CON PO SCH (09:49)
[2019-09-11] MEDS: HYZAAR 100/12.5 MG TAB PO SCH (09:50)
[2019-09-11 09:52] VITALS: BP 104/58
--- NOTE | 2019-09-13 11:45 | DISCHARGE SUMMARY ---
ADMISSION DATE: 09/08/2019 DISCHARGE DATE: 09/11/2019 DISCHARGING DIAGNOSIS: Bilateral leg swelling due to venous insufficiency, chronic, associated with stasis ulcers and cellulitis of the right worse than the left side. SECONDARY DIAGNOSES: 1. Benign prostatic hypertrophy. 2. Hypertension. 3. Osteoarthritis. 4. Abnormal chest x-ray with elevation of right hemidiaphragm. 5. Spinal stenosis at L3-L4. 6. Elevated prostate-specific antigen, 4kscore test less than 6%. 7. History of chronic vertigo and balance treatment by Dr. Gómez. 8. Deconditioning. 9. Chronic constipation. CONSULTS: Paula wound consult. BRIEF HISTORY: Please see the H and P that was done on 09/08/2019. In brief, he is a 79-year- old, white gentleman with the above problems who was admitted to the hospital with dependent edema, stasis ulcers, and not healing with outpatient treatment with cellulitis. HOSPITAL COURSE: Patient was given elevation. Wound consult was obtained. Patient was given IV vancomycin. Unna boot was applied. The patient needs hydrocolloid dressings, Unna boot, and elevation. The rest of the hospital course was uneventful. He has mild issues with chronic allergies and constipation. The patient was sent home with outpatient home health care. LABS: CBC: White cell count 9.6, hematocrit 39.7, platelets 216,000. Sodium 140, potassium 4.0, chloride 97, BUN 27, creatinine 1.1, glucose 139, calcium 8.7. Cardiac enzymes were negative. CRP slightly elevated. DISCHARGE INSTRUCTIONS: 1. Prilosec 40 mg daily. 2. Flomax 0.4 mg daily. 3. Ultracet 1 tablet t.i.d. 4. Hyzaar 100/12.5 daily. 5. Polyethylene glycol 17 g daily. 6. Cetirizine 10 mg daily. 7. Levaquin 500 daily for 10 days. 8. Outpatient wound clinic and recheck in 2 weeks in my office for a followup. cc: Bala Bishop MD
== END 2019-09-11 10:43 | disposition home health service (06) | DRG 603 ==
LOC: DIRADM 14:41 → 4N 16:44
PROVIDERS: ADMIT Internal Medicine; ATTEND Internal Medicine